=== PATIENT | male | born 1960 | race Native Hawaiian/Other Pacific Islander ===

== ENCOUNTER 2018-03-06 16:48 | Outpatient (CLI) | payer OTHER | END 2018-03-06 19:50 | disposition home or self-care (01) | LOC: LAB 16:48 | DX: L02.414 Cutaneous abscess of left upper limb (principal) | CPT/HCPCS: 87070; 87077; 87185; 87186; 87205 ==

== ENCOUNTER 2022-03-13 14:55 | Emergency (ER) | payer OTHER ==
[~2022-03-13] VITALS: Ht 175.3 cm; Wt 54.4 kg
[2022-03-13 14:58] VITALS: BP 132/81; TEMP 98.1
== END 2022-03-13 16:03 | disposition home or self-care (01) ==
LOC: ED 14:55
DX: J20.9 Acute bronchitis, unspecified (principal); Z20.822 Contact with and (suspected) exposure to COVID-19; F17.210 Nicotine dependence, cigarettes, uncomplicated
CPT/HCPCS: 87502; 87635; 94664; 99283; U0003

== ENCOUNTER 2022-03-18 12:11 | Outpatient (CLI) | payer OTHER | END 2022-03-18 19:00 | disposition home or self-care (01) | LOC: RAD 12:11 | PROVIDERS: ATTEND Nurse Practitioner Family | DX: R05.3 Chronic cough (principal) ==